=== PATIENT | male | born 1955 | race Caucasian/White ===

== ENCOUNTER 2023-07-04 08:50 | Day surgery (SDC) | payer OTHER ==
[2023-06-26 15:50] VITALS: BMI 22.3
[2023-07-04 09:15] VITALS: RESP 16
[2023-07-04 10:28] VITALS: BP 116/76; PULSE 60; TEMP 97.7
== END 2023-07-04 11:00 | disposition home or self-care (01) ==
LOC: FASU-ENDO 08:50
PROVIDERS: ATTEND Internal Medicine Gastroenterology
PROC: 0DB68ZX Excision of Stomach, Via Natural or Artificial Opening Endoscopic, Diagnostic (ICD-10-PCS; 2023-07-04)
PROC: 0DB48ZX Excision of Esophagogastric Junction, Via Natural or Artificial Opening Endoscopic, Diagnostic (ICD-10-PCS; 2023-07-04)
PROC: 0DB98ZX Excision of Duodenum, Via Natural or Artificial Opening Endoscopic, Diagnostic (ICD-10-PCS; principal; 2023-07-04 10:10)
DX: K29.50 Unspecified chronic gastritis without bleeding (principal); K20.90 Esophagitis, unspecified without bleeding; R10.13 Epigastric pain
CPT/HCPCS: 88305-TC; 88342-TC